=== PATIENT | female | born 1955 | race Caucasian/White ===

== ENCOUNTER 2019-08-26 12:37 | Outpatient (CLI) | payer OTHER, SELFPAY ==
--- NOTE | ~2019-08-26 | CT_ITS ---
EXAMINATION:CT lung screening DATE: 08/26/2019 14:28 INDICATION: Personal history of tobacco dependence. TECHNIQUE: Computed tomography (CT) of the chest was performed without intravenous contrast. Automate d exposure control and iterative reconstruction technique were employed. The dose-length product (DLP ) was 61.22 mGy-cm. COMPARISON: None. FINDINGS: There is mild scarring at the lung apices. There are 5 mm and 4 mm nodules in right upper l obe. A calcified left lung nodule and calcified left hilar and mediastinal lymph nodes are consistent with old granulomatous disease. No pleural effusion. There is a left posterior diaphragmatic hernia containing fat. The heart size is normal. There are coronary artery calcifications. No pericardial ef fusion. There is a right shoulder arthroplasty. There is a chronic compression fracture of L1. IMPRESSION: 1. Lung-RADS category 2: Benign appearance or behavior. Continue annual screening with noncontrast lo w-dose chest CT in 12 months. Reviewed, dictated and finalized at location A. IMPRESSION: 1. Lung-RADS category 2: Benign appearance or behavior. Continue annual screeni ng with noncontrast low-dose chest CT in 12 months.
--- NOTE | 2019-08-30 11:13 | WPDPFTINT ---
PFT Interpretation PFT Interpretation: This PFT met all criteria for ATS standards and reproducibility FEV/FVC post bronchodilator 58% of predicted FEV1 72% or 1.46 liters FVC 91% or 2.52 liters There was a significant improvement in post bronchodilator FEV1 by 20% and 420 ml TLC 107% RV 158% RV/TLC 56% DLCO 74% when adjusted for alveolar volume but not adjusted for hemoglobin Flow volume loops showed significant expiratory coving Impression: Moderate airflow obstruction with good response to bronchodilators. Air trapping is present and mildly reduced diffusion capacity. This pattern fits COPD with possible Asthma component. Clinical correlation is advised.
--- NOTE | 2019-08-30 11:17 | WPDSIXMINUTE ---
Six Minute Walk Six Minute Walk: The patients O2 sats started 96% and dropped as low as 91% Total walk distance 335.28 meters conclusion: This patient does not qualify for home oxygen therapy
== END 2019-08-26 12:38 | disposition home or self-care (01) ==
PROVIDERS: PCP Physician Assistant; Visit Provider Nurse Practitioner Gerontology
DX: J44.9 Chronic obstructive pulmonary disease, unspecified (principal); R94.2 Abnormal results of pulmonary function studies
CPT/HCPCS: 94060; 94618; 94726; 94729; G0297

== ENCOUNTER 2020-07-09 11:25 | Emergency (ER) | payer OTHER, SELFPAY ==
--- NOTE | ~2020-07-09 | XR_ITS ---
EXAMINATION: XR foot RT min 3V DATE: 07/09/2020 11:49 INDICATION: Right hindfoot and ankle pain post fall one week prior. TECHNIQUE: Dorsoplantar, two oblique and lateral views of the right foot were obtained. COMPARISON: None. FINDINGS: Alignment is normal. No fracture. 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 Mild soft tissue swelling at the dorsal aspect o f the hindfoot. No right ankle joint effusion. IMPRESSION: 1. No acute osseous abnormality. Reviewed, dictated and finalized at location A.
[2020-07-09 11:32] VITALS: BP 131/69; PULSE 96; RESP 16; TEMP 37.4; O2SAT 99
--- NOTE | 2020-07-09 11:35 | ED.LOWEXIN ---
HPI - Extremity Injury (Lower) General Chief Complaint: Extremity Injury, Lower Stated Complaint: right foot pain Time Seen by Provider: 07/09/20 11:36 Source: patient and RN notes reviewed History of Present Illness HPI Narrative: Patient is a 64-year-old female who presents the urgent care with complaints of intermittent right foot pain, exacerbated with ambulation. Patient states that she rolled off a sidewalk onto the inside of the right foot last week. States that her daughter is making her get it checked out . Patient states that she wore tight shoes on Thursday which increase the pain and swelling of the foot. States that after staying off of it yesterday, the swelling has subsided and she is not having any pain currently at rest. Patient denies of any use of [id number] medication for the pain. States that she has fractured the right ankle in the past as well as the right leg even if the foot is broken she has no intentions on getting a cast . No other acute complaints. No acute distress noted. Patient aware of the plan of care. Some parts of this dictation were generated by voice recognition software and may contain typographical and/or grammatical inaccuracies. Related Data Home Medications Medication Instructions Recorded Confirmed amlodipine 5 mg PO DAILY 07/09/20 07/09/20 fluticasone propion-salmeterol 250 inh INHALATION DIRECTED PRN 07/09/20 07/09/20 [Wixela Inhub] ipratropium bromide [Atrovent HFA] INHALATION 07/09/20 Allergies Allergy/AdvReac Type Severity Reaction Status Date / Time No Known Allergies Allergy Verified 07/09/20 11:36 Review of Systems Review of Systems: Narrative: CONSTITUTIONAL: Denies fever, chills, or sweats. EYES: Denies visual changes, redness, or discharge. ENT: Denies rhinorrhea, congestion, sore throat, or otalgia. CARDIOVASCULAR: Denies chest pain, palpitations, or edema. RESPIRATORY: Denies cough or dyspnea. GASTROINTESTINAL: Denies abdominal pain, nausea, vomiting, or diarrhea. GENITOURINARY: Denies dysuria or hematuria. SKIN: Denies rash or itching. MUSCULOSKELETAL: Reports of right foot pain exacerbated with ambulation/weightbearing NEUROLOGIC: Denies headache, numbness, or weakness. All other systems reviewed are negative, except as documented in HPI. [facility] Social History Social History Gender identity (if verbalized by the patient): Female Comments At the time of my signature, I reviewed and agree with the nursing past medical, surgical, social, and family history. There is no relevant family history pertinent to the patient complaint. Exam Narrative: Exam Narrative: GENERAL: This is a well-nourished, well-developed patient, in no apparent distress. HEAD: normocephalic, atraumatic. EYES: PERRL. Sclera clear/white. Vision is grossly intact. EARS: External ears normal NOSE: External nose normal with no obvious nasal discharge, nares without redness, no rhinorrhea. THROAT: Mucous membranes moist NECK: Neck supple SKIN: warm, intact with no suspicious lesions or rash, good texture and turgor. NEURO: awake, alert, and oriented to person, place and time. There were no obvious focal neurologic abnormalities. EXTREMITIES: Mild ecchymosis noted to the medial aspect of the right foot without erythema or edema. No obvious deformity noted to the right lower extremity. Positive strong right pedal pulse with capillary refill less than 2 seconds. Range of motion to right foot within normal limits. Pain exacerbated with weightbearing Course Vital Signs Vital signs: Vital Signs Temperature 99.4 F 07/09/20 11:32 Pulse Rate 96 07/09/20 11:32 Respiratory Rate 16 07/09/20 11:32 Blood Pressure 131/69 07/09/20 11:32 Pulse Oximetry 99 07/09/20 11:32 Temperature 99.4 F 07/09/20 11:39 Pulse Rate 96 07/09/20 11:39 Respiratory Rate 16 07/09/20 11:39 Blood Pressure 131/69 07/09/20 11:39 Pulse Oximetry 99 07/09/20 11:39 Reviewed
[2020-07-09 11:39] VITALS: BP 131/69; PULSE 96; RESP 16; TEMP 37.4; O2SAT 99
== END 2020-07-09 12:11 | disposition home or self-care (01) ==
PROVIDERS: Emergency Provider Nurse Practitioner Family; PCP Physician Assistant
DX: S93.601A Unspecified sprain of right foot, initial encounter (principal); X50.9XXA Other and unspecified overexertion or strenuous movements or postures, initial encounter; I10 Essential (primary) hypertension; J44.9 Chronic obstructive pulmonary disease, unspecified
CPT/HCPCS: 73630; 99213; G0463